=== PATIENT | female | born 1955 | race Caucasian/White ===

== ENCOUNTER → 2016-05-15 | Outpatient (CLI) | payer BC | LOC: MW.CHFP 13:55 | PROVIDERS: ATTEND Emergency Medicine | DX: R74.8 Abnormal levels of other serum enzymes (principal) | CPT/HCPCS: 36415; 84450; 84460 ==

== ENCOUNTER → 2016-07-13 | Outpatient (CLI) | payer BC | LOC: MW.CHFP 07:57 | PROVIDERS: ATTEND Emergency Medicine | DX: R74.8 Abnormal levels of other serum enzymes (principal); E66.9 Obesity, unspecified | CPT/HCPCS: 36415; 83036; 84450; 84460 ==

== ENCOUNTER 2024-09-08 21:22 | Emergency (ER) | payer MEDICARE, OTHER ==
[2024-09-08] MEDS: Ketorolac 30 MG/ML SDV IM ONE (22:13)
[2024-09-08 23:31] VITALS: BP 136/90; PULSE 71
== END 2024-09-08 23:29 | disposition home or self-care (01) ==
LOC: MW.ED 21:22
DX: S09.90XA Unspecified injury of head, initial encounter (principal); S00.81XA Abrasion of other part of head, initial encounter; S42.402A Unspecified fracture of lower end of left humerus, initial encounter for closed fracture; M25.422 Effusion, left elbow; Z90.49 Acquired absence of other specified parts of digestive tract; Z90.710 Acquired absence of both cervix and uterus; Z88.5 Allergy status to narcotic agent; Z79.899 Other long term (current) drug therapy; W18.30XA Fall on same level, unspecified, initial encounter
CPT/HCPCS: 29105; 73080; 96372; 99283; A9270; J1885